=== PATIENT | male | born 1935 | race Caucasian/White ===

== ENCOUNTER 2021-12-23 07:00 | Inpatient (IN) ==
[2021-12-23] MEDS ORDERED: GLUCAGON 1 MG VIAL IM PRN (09:39)
[2021-12-23] MEDS ORDERED: SODIUM CHLORIDE 0.9% 1,000 ML IV SCH (10:00)
[2021-12-23] MEDS ORDERED: NITROGLYCERIN SL 0.4 MG TABLET SL PRN (11:17)
[2021-12-23] MEDS ORDERED: MORPHINE 2 MG/1 ML SYRINGE IV PRN (11:18)
[2021-12-23 13:12] LABS: Arterial Base Excess iSTAT -3 MMOL/L (-2.5-2.5); Arterial Bicarbonate iSTAT 22.4 MMOL/L (20-26); Arterial O2 Saturation iSTAT 92 % (95-100); Arterial PCO2 iSTAT 41 MM HG (35-48); Arterial PO2 iSTAT 67 MM HG (80-95); Arterial Total CO2 iSTAT 24 MMO/L (23-27); Arterial pH iSTAT 7.346 (7.35-7.45)
[2021-12-23 13:28] LABS: Basophils # 0.1 10*3/uL (0.0-0.2); Basophils % 1.2 % (0.0-0.8); Eosinophils % 11.4 % (0.00-10.9); Hematocrit 40.3 VOL% (42.0-52.0); Hemoglobin 13.1 GM/DL (14.0-18.0); Immature Granulocytes % 0.5 %; Immature Granulocytes Absolute 0.05 #; Lymphocytes # 1.8 10*3/uL (1.4-4.0); Lymphocytes % 19.8 % (21.2-54.2); Mean Corpuscular HGB Conc 32.5 GM/DL (32-36); Mean Corpuscular Volume 92.9 FL (87-102); Mean Platelet Volume 10.1 FL (9.6-12.0); Monocytes # 1.1 10*3/uL (0.11-0.8); Monocytes % 11.9 % (1.7-12.7); Neutrophils % 55.2 % (38.7-73.9); Platelet Count 225 T/CUMM (130-400); Red Blood Count 4.34 MC/CUMM (3.8-5.5); Red Cell Distribution Width 15.8 % (9.3-17.3); White Blood Count 9.1 T/CUMM (4-12)
[2021-12-23 13:45] LABS: Albumin 3.5 G/DL (3.4-5.0); Bilirubin,Total 0.4 MG/DL (0.20-1.00); Osmolality,Calculated 285.1 MOS/KG (273-304); Potassium 4.5 MMOL/L (3.5-5.1); Total Protein 7.7 G/DL (6.4-8.2)
[2021-12-23] MEDS ORDERED: DEXTROSE 10% 250 ML BAG IV PRN (13:54)
[2021-12-23 14:02] LABS: Eosinophils 13 % (0-10); Lymphocytes 23 % (20-55); Total Cells Counted 100
[2021-12-23 14:04] LABS: Platelet Estimate Adequate
[2021-12-23] MEDS ORDERED: ALPRAZolam 0.5 MG TABLET PO PRN (14:43)
[2021-12-23] MEDS ORDERED: ZALEPLON 5 MG CAPSULE PO PRN (14:44)
[2021-12-23] MEDS: INSULIN REGULAR 100 UNIT/ML SUBCUT SCH ×3 (15:17→21:17)
[2021-12-23] MEDS: CHLORHEXIDINE 4% SOLN 118 ML BOTTLE TOP SCH ×2 (15:57→21:16)
[2021-12-23] MEDS ORDERED: PANTOPRAZOLE 40 MG TABLET PO ONE (16:00)
[2021-12-23] MEDS ORDERED: DIAZEPAM 5 MG TABLET PO ONE (16:00)
[2021-12-23] MEDS: ISOSORBIDE MONONITRATE 30 MG TABLET PO SCH (21:16)
[2021-12-23] MEDS: CHLORHEXIDINE 0.12% ORAL RINSE 60 ML BOTTLE SWISH/SPIT SCH (21:16)
[2021-12-24] MEDS ORDERED: PAPAVERINE 60 MG/2 ML VIAL ONE (04:17)
[2021-12-24] MEDS ORDERED: VANCOMYCIN 500 MG VIAL ONE (04:17)
[2021-12-24] MEDS ORDERED: VANCOMYCIN 1,000 MG VIAL ONE (04:17)
[2021-12-24] MEDS: CHLORHEXIDINE 4% SOLN 118 ML BOTTLE TOP SCH (04:25)
[2021-12-24] MEDS ORDERED: DIAZEPAM 5 MG TABLET PO ONE (05:00)
[2021-12-24] MEDS ORDERED: SODIUM CHLORIDE 0.9% 1,000 ML IV SCH (05:00)
[2021-12-24] MEDS ORDERED: VANCOMYCIN INJ 1,000 MG in SODIUM CHLORIDE 0.9% 250 ML IV ONE (05:00)
[2021-12-24] MEDS ORDERED: PANTOPRAZOLE 40 MG TABLET PO ONE (05:00)
[2021-12-24] MEDS ORDERED: MIDAZOLAM 10 MG/2 ML VIAL ONE ×4 (06:07→07:58)
[2021-12-24] MEDS ORDERED: CALCIUM CHLORIDE 1,000 MG/10 ML VIAL IV ONE ×2 (06:07→10:30)
[2021-12-24] MEDS ORDERED: AMINOCAPROIC ACID 5,000 MG/20 ML VIAL ONE (06:07)
[2021-12-24] MEDS ORDERED: LIDOCAINE 2% 5 ML VIAL ONE ×2 (06:07→10:27)
[2021-12-24] MEDS ORDERED: VECURONIUM 10 MG VIAL IV ONE ×3 (06:07→07:58)
[2021-12-24] MEDS ORDERED: SUFentanil 250 MCG/5 ML AMP ONE ×2 (06:08→08:08)
[2021-12-24] MEDS ORDERED: ePHEDrine 50 MG/ML VIAL ONE (06:08)
[2021-12-24] MEDS ORDERED: MINERAL OIL/PETROLATUM OPH OINT 3.5 GM TUBE ONE (06:34)
[2021-12-24] MEDS ORDERED: POTASSIUM CHLORIDE RIDER 20 MEQ/100 ML PREMIX IV ONE (07:00)
[2021-12-24] MEDS ORDERED: NITROPRUSSIDE 50 MG/2 ML VIAL ONE (07:00)
[2021-12-24] MEDS ORDERED: SODIUM BICARBONATE 50 MEQ/50 ML VIAL IV ONE ×2 (07:00→10:28)
[2021-12-24] MEDS ORDERED: ALBUMIN 5% 12.5 GM/250 ML VIAL IV ONE (07:01)
[2021-12-24] MEDS ORDERED: CALCIUM CHLORIDE 1,000 MG/10 ML SYRINGE IV ONE (07:01)
[2021-12-24] MEDS ORDERED: PHENYLEPHRINE DRIP 40 MG/250 ML PREMIX IV ONE (07:01)
[2021-12-24 07:45] LABS: ABG Base Excess 0.9 MMOL/L (-2.5-2.5); ABG HCO3 25.3 MMOL/L (20-26); ABG PCO2 30.8 MM HG (35-48); ABG TCO2 20.5 MMOL/L (23-27); Glucose Heart Surgery 132 MG/DL (74-106); Hematocrit Heart Surgery 38.4 PERCENT (42-52); Hemoglobin Heart Surgery 12.5 G/DL (14.0-18.0); Ionized Calcium Arterial 1.15 MMOL/L (1.21-1.46); PCO2 Patient Temp Arterial 30.8 MMHG; Patient Temperature 37 CELCIUS; Sodium Heart/CVR 141 MMOL/L (135-145)
[2021-12-24 08:22] LABS: Bilirubin,Urine Negative (Negative); Blood, Urine Moderate mg/dL (Negative); Glucose,Urine (UA) 100 mg/dL (Negative); Ketones,Urine Negative (Negative); Nitrite,Urine Negative (Negative); Protein,Urine 30 mg/dL (Negative); RBC,Urine 45 /HPF (0-4); Urine Appearance Clear (Clear); Urine Color Straw (Yellow); Urine Specific Gravity 1.015 (1.001-1.035); Urine Urobilinogen 0.2 eU/dL (<2.0); Urine pH 5.5 (4.5-8.0)
[2021-12-24] MEDS ORDERED: FAMOTIDINE 20 MG/2 ML VIAL IV ONE (08:46)
[2021-12-24 09:28] LABS: Hematocrit Heart Surgery 26.2 PERCENT (42-52); Hemoglobin Heart Surgery 8.4 G/DL (14.0-18.0); PCO2 Patient Temp Venous 36.5 MM HG; PH Patient Temp Venous 7.438; PO2 Patient Temp Venous 43.4 MM HG; Potassium Heart/CVR 4.8 MMOL/L (3.5-5.1); VBG Base Excess 0.8 MEQ/L (0-4); VBG Oxygen Saturation 87.8 %; VBG PCO2 42.2 MMHG (41-51); VBG PH 7.394; VBG PO2 53.2 MMHG (17-40)
[2021-12-24 09:55] LABS: Hematocrit Heart Surgery 28.4 PERCENT (42-52); Hemoglobin Heart Surgery 9.2 G/DL (14.0-18.0); PCO2 Patient Temp Venous 34.1 MM HG; PH Patient Temp Venous 7.461; PO2 Patient Temp Venous 38.8 MM HG; Potassium Heart/CVR 4.9 MMOL/L (3.5-5.1); VBG Base Excess 0.9 MEQ/L (0-4); VBG HCO3 24.9 MEQ/L (24-28); VBG Oxygen Saturation 79.2 %; VBG PCO2 35.8 MMHG (41-51); VBG PH 7.446; VBG PO2 41.6 MMHG (17-40); VBG Total CO2 22.7 MMOL/L
[2021-12-24] MEDS ORDERED: diphenhydrAMINE 50 MG/1 ML VIAL ONE ×2 (09:57→09:58)
[2021-12-24] MEDS: INSULIN REGULAR 100 UNIT/ML SUBCUT SCH ×2 (10:16→19:37)
[2021-12-24] MEDS: CHLORHEXIDINE 0.12% ORAL RINSE 60 ML BOTTLE SWISH/SPIT SCH (10:16)
[2021-12-24] MEDS: ISOSORBIDE MONONITRATE 30 MG TABLET PO SCH (10:16)
[2021-12-24 10:24] LABS: ABG Base Excess -0.6 MMOL/L (-2.5-2.5); ABG HCO3 23.9 MMOL/L (20-26); ABG PCO2 32.7 MM HG (35-48); ABG PH 7.451 (7.35-7.45); ABG TCO2 20.7 MMOL/L (23-27); Glucose Heart Surgery 200 MG/DL (74-106); Hematocrit Heart Surgery 30.6 PERCENT (42-52); Hemoglobin Heart Surgery 9.9 G/DL (14.0-18.0); Ionized Calcium Arterial 1.27 MMOL/L (1.21-1.46); PCO2 Patient Temp Arterial 32.7 MMHG; PH Patient Temp Arterial 7.451; Patient Temperature 37 CELCIUS; Potassium Heart/CVR 4.3 MMOL/L (3.5-5.1); Sodium Heart/CVR 136 MMOL/L (135-145)
[2021-12-24] MEDS ORDERED: ALBUMIN 25% 25 GM/100 ML VIAL IV ONE (10:27)
[2021-12-24] MEDS ORDERED: DEXTROSE 5% KCL 20 MEQ 20 MEQ/1,000 ML BAG IV ONE (10:27)
[2021-12-24] MEDS ORDERED: methylPREDNISolone SOD SUC 1,000 MG/8 ML VIAL ONE (10:27)
[2021-12-24] MEDS ORDERED: MAGNESIUM SULFATE 5 GM/10 ML VIAL IV ONE (10:27)
[2021-12-24] MEDS ORDERED: PROTAMINE SULFATE 250 MG/25 ML VIAL IV ONE (10:28)
[2021-12-24] MEDS ORDERED: MANNITOL 12.5 GM/50 ML VIAL IV ONE (10:28)
[2021-12-24] MEDS ORDERED: HEPARIN 10,000 UNIT/10 ML VIAL ONE (10:28)
[2021-12-24] MEDS ORDERED: PROTAMINE SULFATE 50 MG/5 ML VIAL IV ONE ×2 (10:28→11:23)
[2021-12-24] MEDS ORDERED: FUROSEMIDE 20 MG/2 ML VIAL ONE (10:28)
[2021-12-24] MEDS ORDERED: SODIUM CHLORIDE 0.9% 250 ML IV ONE ×2 (10:45)
[2021-12-24] MEDS ORDERED: LACTATED RINGERS 1,000 ML IV ONE (10:45)
[2021-12-24] MEDS ORDERED: SEVOFLURANE 1 UNIT/15 MINUTE INH ONE ×10 (10:45→10:46)
[2021-12-24] MEDS ORDERED: SODIUM CHLORIDE 0.9% 1,000 ML IV ONE (10:45)
[2021-12-24] MEDS ORDERED: HEPARIN/NACL 0.9% 2 UNITS/ML 1,000 UNIT/500 ML BAG IV ONE (10:45)
[2021-12-24] MEDS ORDERED: MAGNESIUM SULF RIDER 4 GM/100 ML PREMIX IV PRN (10:52)
[2021-12-24] MEDS ORDERED: DEXTROSE 10% 250 ML BAG IV PRN ×2 (10:52)
[2021-12-24] MEDS ORDERED: POTASSIUM CHLORIDE RIDER 10 MEQ/100 ML PREMIX IV PRN (10:52)
[2021-12-24] MEDS ORDERED: VECURONIUM 10 MG VIAL IV PRN ×2 (10:52)
[2021-12-24] MEDS ORDERED: INSULIN REGULAR 100 UNIT/ML IV ONE (10:52)
[2021-12-24] MEDS ORDERED: CHLORHEXIDINE 4% SOLN 118 ML BOTTLE TOP PRN (10:52)
[2021-12-24] MEDS ORDERED: MORPHINE 10 MG/1 ML VIAL IV PRN (10:52)
[2021-12-24] MEDS ORDERED: NITROPRUSSIDE 100 MG in DEXTROSE 5% 250 ML IV PRN (10:52)
[2021-12-24] MEDS ORDERED: ONDANSETRON 4 MG/2 ML VIAL IV PRN (10:52)
[2021-12-24] MEDS ORDERED: MAGNESIUM SULF RIDER 2 GM/50 ML PREMIX IV PRN (10:52)
[2021-12-24] MEDS ORDERED: POTASSIUM CHLORIDE RIDER 20 MEQ/100 ML PREMIX IV PRN (10:52)
[2021-12-24] MEDS ORDERED: INSULIN REGULAR 100 UNIT/ML IV PRN (10:52)
[2021-12-24] MEDS ORDERED: CALCIUM CHLORIDE 1,000 MG/10 ML SYRINGE IV PRN (10:52)
[2021-12-24] MEDS ORDERED: PHENYLEPHRINE DRIP 40 MG/250 ML PREMIX IV PRN (10:52)
[2021-12-24] MEDS ORDERED: ACETAMINOPHEN 650 MG SUPP RECTAL PRN (10:52)
[2021-12-24] MEDS: ALBUMIN 5% 12.5 GM/250 ML VIAL IV PRN ×4 (11:00→16:01)
[2021-12-24] MEDS ORDERED: SODIUM CHLORIDE 0.45% 1,000 ML IV SCH ×2 (11:00)
[2021-12-24] MEDS ORDERED: INSULIN REGULAR DRIP 100 ML IV SCH (11:00)
[2021-12-24] MEDS: LACTATED RINGERS 250 ML IV PRN ×4 (11:05→12:52)
[2021-12-24 11:38] LABS: ABG Base Excess -1.6 MMOL/L (-2.5-2.5); ABG HCO3 23.1 MMOL/L (20-26); ABG Oxygen Saturation 98.8 % (95-100); ABG TCO2 20.6 MMOL/L (23-27); Glucose Heart Surgery 169 MG/DL (74-106); Hematocrit Heart Surgery 34.6 PERCENT (42-52); Hemoglobin Heart Surgery 11.2 G/DL (14.0-18.0); Potassium Heart/CVR 4.1 MMOL/L (3.5-5.1)
[2021-12-24 11:42] LABS: Basophils # 0.1 10*3/uL (0.0-0.2); Basophils % 0.7 % (0.0-0.8); Eosinophils # 0.6 10*3/uL (0.0-0.87); Eosinophils % 5.9 % (0.00-10.9); Hematocrit 33.4 VOL% (42.0-52.0); Hemoglobin 11.1 GM/DL (14.0-18.0); Immature Granulocytes % 1.1 %; Immature Granulocytes Absolute 0.12 #; Lymphocytes # 1.1 10*3/uL (1.4-4.0); Lymphocytes % 9.8 % (21.2-54.2); Mean Corpuscular HGB Conc 33.2 GM/DL (32-36); Mean Corpuscular Volume 91.5 FL (87-102); Mean Platelet Volume 10.1 FL (9.6-12.0); Monocytes # 0.8 10*3/uL (0.11-0.8); Monocytes % 7.1 % (1.7-12.7); Neutrophils % 75.4 % (38.7-73.9); Platelet Count 176 T/CUMM (130-400); Red Blood Count 3.65 MC/CUMM (3.8-5.5); Red Cell Distribution Width 15.7 % (9.3-17.3); White Blood Count 10.7 T/CUMM (4-12)
[2021-12-24 11:52] LABS: INR 1.1; PT Patient Result 12.1 SECS (10.5-12.0); Partial Thromboplastin Time 29.6 SECS (23.8-32.1)
[2021-12-24 11:59] LABS: CKMB % 9.64 %
[2021-12-24 12:03] LABS: Albumin 2.9 G/DL (3.4-5.0); Bilirubin,Total 0.8 MG/DL (0.20-1.00); Calcium 9.2 MG/DL (8.5-10.1); High Sensitive Troponin I* 4986.4 ng/L (0-78); Osmolality,Calculated 286.5 MOS/KG (273-304); Potassium 4.1 MMOL/L (3.5-5.1); Total Protein 5.8 G/DL (6.4-8.2)
[2021-12-24] MEDS: LACTATED RINGERS 1,000 ML IV PRN ×2 (12:28→14:45)
[2021-12-24 12:42] LABS: ABG HCO3 22.7 MMOL/L (20-26); ABG Oxygen Saturation 99.3 % (95-100); ABG PCO2 37.1 MM HG (35-48); ABG PH 7.391 (7.35-7.45); ABG TCO2 20.4 MMOL/L (23-27); Glucose Heart Surgery 154 MG/DL (74-106); Hematocrit Heart Surgery 32.6 PERCENT (42-52); Hemoglobin Heart Surgery 10.6 G/DL (14.0-18.0); Potassium Heart/CVR 3.9 MMOL/L (3.5-5.1)
[2021-12-24 13:56] LABS: ABG Base Excess -1.6 MMOL/L (-2.5-2.5); ABG HCO3 23.1 MMOL/L (20-26); ABG Oxygen Saturation 99.1 % (95-100); ABG PCO2 35.9 MM HG (35-48); ABG PH 7.407 (7.35-7.45); ABG TCO2 20.4 MMOL/L (23-27); Glucose Heart Surgery 150 MG/DL (74-106); Hematocrit Heart Surgery 32.5 PERCENT (42-52); Hemoglobin Heart Surgery 10.5 G/DL (14.0-18.0); Potassium Heart/CVR 4.5 MMOL/L (3.5-5.1)
[2021-12-24] MEDS ORDERED: FUROSEMIDE 40 MG/4 ML VIAL ONE (18:08)
[2021-12-24 18:26] LABS: ABG Base Excess -1.5 MMOL/L (-2.5-2.5); ABG HCO3 23.2 MMOL/L (20-26); ABG Oxygen Saturation 98.9 % (95-100); ABG PCO2 42.4 MM HG (35-48); ABG PH 7.359 (7.35-7.45); ABG TCO2 21.8 MMOL/L (23-27); Glucose Heart Surgery 177 MG/DL (74-106); Hematocrit Heart Surgery 30.6 PERCENT (42-52); Hemoglobin Heart Surgery 9.9 G/DL (14.0-18.0); Potassium Heart/CVR 4.6 MMOL/L (3.5-5.1)
[2021-12-24] MEDS ORDERED: FUROSEMIDE 40 MG/4 ML VIAL IV ONE (18:30)
[2021-12-24 18:49] LABS: CKMB % 7.62 %
[2021-12-24 18:51] LABS: High Sensitive Troponin I* 7380.1 ng/L (0-78)
[2021-12-24 19:21] LABS: ABG Base Excess -1.5 MMOL/L (-2.5-2.5); ABG HCO3 23.2 MMOL/L (20-26); ABG Oxygen Saturation 98.9 % (95-100); ABG PCO2 41.6 MM HG (35-48); ABG PH 7.365 (7.35-7.45); ABG TCO2 21.6 MMOL/L (23-27); Glucose Heart Surgery 186 MG/DL (74-106); Hematocrit Heart Surgery 31.5 PERCENT (42-52); Hemoglobin Heart Surgery 10.2 G/DL (14.0-18.0); Potassium Heart/CVR 4.5 MMOL/L (3.5-5.1)
[2021-12-24] MEDS ORDERED: CHLORHEXIDINE 0.12% ORAL RINSE 60 ML BOTTLE SWISH/SPIT SCH (21:00)
[2021-12-24 22:49] LABS: ABG Base Excess -1.6 MMOL/L (-2.5-2.5); ABG HCO3 23.1 MMOL/L (20-26); ABG Oxygen Saturation 98.9 % (95-100); ABG PH 7.382 (7.35-7.45); ABG TCO2 21.1 MMOL/L (23-27); Glucose Heart Surgery 210 MG/DL (74-106); Hematocrit Heart Surgery 31.4 PERCENT (42-52); Hemoglobin Heart Surgery 10.2 G/DL (14.0-18.0); Potassium Heart/CVR 4.4 MMOL/L (3.5-5.1)
[2021-12-24] MEDS: VANCOMYCIN INJ 1,000 MG in SODIUM CHLORIDE 0.9% 250 ML IV SCH (23:01)
[2021-12-25 00:03] LABS: ABG HCO3 22.7 MMOL/L (20-26); ABG Oxygen Saturation 99.1 % (95-100); ABG PCO2 36.6 MM HG (35-48); ABG PH 7.396 (7.35-7.45); ABG TCO2 20.4 MMOL/L (23-27); Glucose Heart Surgery 212 MG/DL (74-106); Potassium Heart/CVR 4.4 MMOL/L (3.5-5.1)
[2021-12-25] MEDS: INSULIN REGULAR 100 UNIT/ML SUBCUT SCH ×7 (00:10→23:41)
[2021-12-25 01:56] LABS: ABG Base Excess -2.8 MMOL/L (-2.5-2.5); ABG Oxygen Saturation 99.3 % (95-100); ABG PCO2 37.1 MM HG (35-48); ABG PH 7.378 (7.35-7.45); ABG TCO2 19.8 MMOL/L (23-27); Glucose Heart Surgery 246 MG/DL (74-106); Hematocrit Heart Surgery 31.8 PERCENT (42-52); Hemoglobin Heart Surgery 10.3 G/DL (14.0-18.0); Potassium Heart/CVR 4.3 MMOL/L (3.5-5.1)
[2021-12-25 02:54] LABS: ABG HCO3 21.9 MMOL/L (20-26); ABG Oxygen Saturation 97.1 % (95-100); ABG PCO2 40.7 MM HG (35-48); ABG PH 7.348 (7.35-7.45); ABG PO2 91.1 MM HG (80-95); ABG TCO2 20.4 MMOL/L (23-27); Glucose Heart Surgery 237 MG/DL (74-106); Hematocrit Heart Surgery 31.7 PERCENT (42-52); Hemoglobin Heart Surgery 10.3 G/DL (14.0-18.0); Potassium Heart/CVR 4.2 MMOL/L (3.5-5.1)
[2021-12-25 04:00] LABS: ABG Base Excess -2.8 MMOL/L (-2.5-2.5); ABG HCO3 22.1 MMOL/L (20-26); ABG Oxygen Saturation 97.8 % (95-100); ABG PCO2 41.2 MM HG (35-48); ABG PH 7.348 (7.35-7.45); ABG TCO2 20.7 MMOL/L (23-27); Glucose Heart Surgery 247 MG/DL (74-106); Potassium Heart/CVR 4.2 MMOL/L (3.5-5.1)
[2021-12-25 04:09] LABS: Basophils % 0.2 % (0.0-0.8); Hematocrit 30.7 VOL% (42.0-52.0); Hemoglobin 10.3 GM/DL (14.0-18.0); Immature Granulocytes % 0.5 %; Immature Granulocytes Absolute 0.09 #; Lymphocytes # 0.6 10*3/uL (1.4-4.0); Lymphocytes % 3.8 % (21.2-54.2); Mean Corpuscular HGB Conc 33.6 GM/DL (32-36); Mean Corpuscular Volume 92.5 FL (87-102); Mean Platelet Volume 10.2 FL (9.6-12.0); Monocytes # 1.3 10*3/uL (0.11-0.8); Monocytes % 7.8 % (1.7-12.7); Neutrophils % 87.7 % (38.7-73.9); Platelet Count 165 T/CUMM (130-400); Red Blood Count 3.32 MC/CUMM (3.8-5.5); White Blood Count 16.9 T/CUMM (4-12)
[2021-12-25 04:26] LABS: Albumin 3.5 G/DL (3.4-5.0); Bilirubin,Direct 0.23 MG/DL (0.0-0.20); Bilirubin,Total 0.7 MG/DL (0.20-1.00); Calcium 8.7 MG/DL (8.5-10.1); Osmolality,Calculated 292.4 MOS/KG (273-304); Potassium 4.2 MMOL/L (3.5-5.1); Total Protein 5.9 G/DL (6.4-8.2)
[2021-12-25 04:28] LABS: CKMB % 6.51 %
[2021-12-25 04:29] LABS: Band Neutrophils 4 % (0-10); High Sensitive Troponin I* 6093.3 ng/L (0-78); Lymphocytes 1 % (20-55); Total Cells Counted 100
[2021-12-25 04:30] LABS: Microcytosis 1+
[2021-12-25] MEDS ORDERED: ALPRAZolam 0.5 MG TABLET PO PRN (07:01)
[2021-12-25] MEDS ORDERED: MAGNESIUM SULF RIDER 4 GM/100 ML PREMIX IV PRN (08:14)
[2021-12-25] MEDS ORDERED: ALUMINUM/MAGNES/SIMETH MAX STR 30 ML UDCUP PO PRN (08:14)
[2021-12-25] MEDS ORDERED: ACETAMINOPHEN 325 MG TABLET PO PRN (08:14)
[2021-12-25] MEDS ORDERED: POTASSIUM CHLORIDE 20 MEQ TABLET PO PRN (08:14)
[2021-12-25] MEDS ORDERED: oxyCODONE/ACETAMINOPHEN 5-325 MG TABLET PO PRN (08:14)
[2021-12-25] MEDS ORDERED: DEXTROSE 10% 250 ML BAG IV PRN ×2 (08:14)
[2021-12-25] MEDS ORDERED: GLUCAGON 1 MG VIAL IM PRN ×2 (08:14)
[2021-12-25] MEDS ORDERED: MAGNESIUM HYDROXIDE SUSP 30 ML UDCUP PO PRN (08:14)
[2021-12-25] MEDS ORDERED: ONDANSETRON 4 MG/2 ML VIAL IV PRN (08:14)
[2021-12-25] MEDS ORDERED: MAGNESIUM SULF RIDER 2 GM/50 ML PREMIX IV PRN (08:14)
[2021-12-25] MEDS: ASPIRIN EC 81 MG TABLET PO SCH (08:21)
[2021-12-25] MEDS: PANTOPRAZOLE 40 MG TABLET PO SCH (08:21)
[2021-12-25] MEDS: COLCHICINE 0.6 MG CAPSULE PO SCH (08:21)
[2021-12-25] MEDS: DOCUSATE SODIUM 100 MG CAPSULE PO SCH (08:22)
[2021-12-25] MEDS: FERROUS SULFATE 325 MG TABLET PO SCH (08:22)
[2021-12-25] MEDS: ISOSORBIDE MONONITRATE 30 MG TABLET PO SCH (08:22)
[2021-12-25] MEDS: METOPROLOL SUCCINATE XL 50 MG TABLET PO SCH (08:22)
[2021-12-25] MEDS: CHLORHEXIDINE 0.12% ORAL RINSE 60 ML BOTTLE SWISH/SPIT SCH ×2 (08:23→20:34)
[2021-12-25] MEDS: SODIUM CHLOR 0.45% KCL 20 MEQ 20 MEQ/1,000 ML BAG IV SCH (08:25)
[2021-12-25] MEDS ORDERED: TIOTROPIUM 18 MCG INHALATION CAP 5/BOX INH SCH (09:00)
[2021-12-25] MEDS ORDERED: PIOGLITAZONE 15 MG TABLET PO SCH (09:00)
[2021-12-25] MEDS: VANCOMYCIN INJ 1,000 MG in SODIUM CHLORIDE 0.9% 250 ML IV SCH ×2 (10:02→23:41)
[2021-12-25] MEDS: INSULIN GLARGINE 100 UNIT/ML SUBCUT SCH (11:30)
[2021-12-25 11:48] LABS: CKMB % 6.01 %
[2021-12-25 11:52] LABS: High Sensitive Troponin I* 4627.9 ng/L (0-78)
[2021-12-25] MEDS: IPRATROPIUM 500 MCG/2.5 ML NEB RESP TX SCH ×3 (15:08→18:47)
[2021-12-25] MEDS ORDERED: INSULIN GLARGINE 100 UNIT/ML SUBCUT ONE ×2 (17:56)
[2021-12-25] MEDS: ZALEPLON 5 MG CAPSULE PO PRN (20:34)
[2021-12-26] MEDS: INSULIN REGULAR 100 UNIT/ML SUBCUT SCH ×5 (03:08→21:10)
[2021-12-26 04:44] LABS: Basophils % 0.2 % (0.0-0.8); Hematocrit 27.6 VOL% (42.0-52.0); Hemoglobin 8.9 GM/DL (14.0-18.0); Immature Granulocytes Absolute 0.19 #; Lymphocytes # 0.9 10*3/uL (1.4-4.0); Mean Corpuscular HGB Conc 32.2 GM/DL (32-36); Mean Corpuscular Volume 94.8 FL (87-102); Mean Platelet Volume 10.8 FL (9.6-12.0); Monocytes # 2.3 10*3/uL (0.11-0.8); Monocytes % 12.1 % (1.7-12.7); Neutrophils % 81.7 % (38.7-73.9); Platelet Count 177 T/CUMM (130-400); Red Blood Count 2.91 MC/CUMM (3.8-5.5); Red Cell Distribution Width 16.2 % (9.3-17.3); White Blood Count 18.5 T/CUMM (4-12)
[2021-12-26] MEDS ORDERED: SODIUM CHLORIDE 0.9% 1,000 ML IV PRN (05:08)
[2021-12-26 05:22] LABS: Albumin 2.9 G/DL (3.4-5.0); Bilirubin,Direct 0.12 MG/DL (0.0-0.20); Bilirubin,Total 0.4 MG/DL (0.20-1.00); Calcium 8.5 MG/DL (8.5-10.1); Osmolality,Calculated 284.1 MOS/KG (273-304); Potassium 4.1 MMOL/L (3.5-5.1)
[2021-12-26 05:24] LABS: Bilirubin,Direct 0.14 MG/DL (0.0-0.20); Bilirubin,Indirect 0.3 MG/DL (0.0-1.0); Bilirubin,Total 0.4 MG/DL (0.20-1.00); CKMB % 3.07 %; High Sensitive Troponin I* 2982.6 ng/L (0-78); Total Protein 5.6 G/DL (6.4-8.2)
[2021-12-26] MEDS ORDERED: FUROSEMIDE 40 MG/4 ML VIAL IV ONE (06:00)
[2021-12-26] MEDS: IPRATROPIUM 500 MCG/2.5 ML NEB RESP TX SCH ×4 (07:53→18:55)
[2021-12-26] MEDS: CHLORHEXIDINE 0.12% ORAL RINSE 60 ML BOTTLE SWISH/SPIT SCH ×2 (09:00→21:11)
[2021-12-26] MEDS: ASPIRIN EC 81 MG TABLET PO SCH (09:00)
[2021-12-26] MEDS: INSULIN GLARGINE 100 UNIT/ML SUBCUT SCH ×2 (09:00→09:28)
[2021-12-26] MEDS: FERROUS SULFATE 325 MG TABLET PO SCH (09:28)
[2021-12-26] MEDS: ISOSORBIDE MONONITRATE 30 MG TABLET PO SCH (09:29)
[2021-12-26] MEDS: COLCHICINE 0.6 MG CAPSULE PO SCH (09:29)
[2021-12-26] MEDS: PANTOPRAZOLE 40 MG TABLET PO SCH (09:29)
[2021-12-26] MEDS: DOCUSATE SODIUM 100 MG CAPSULE PO SCH (09:29)
[2021-12-26] MEDS: METOPROLOL SUCCINATE XL 50 MG TABLET PO SCH (09:29)
[2021-12-26] MEDS: SODIUM CHLOR 0.45% KCL 20 MEQ 20 MEQ/1,000 ML BAG IV SCH (10:35)
[2021-12-26] MEDS: VANCOMYCIN INJ 1,000 MG in SODIUM CHLORIDE 0.9% 250 ML IV SCH (11:00)
[2021-12-26 13:21] LABS: Hematocrit 33.7 VOL% (42.0-52.0)
[2021-12-26 13:28] LABS: Hemoglobin 11.1 GM/DL (14.0-18.0)
[2021-12-26] MEDS: ZALEPLON 5 MG CAPSULE PO PRN (21:10)
[2021-12-27] MEDS: INSULIN REGULAR 100 UNIT/ML SUBCUT SCH ×7 (00:37→23:51)
[2021-12-27 04:03] LABS: Basophils % 0.2 % (0.0-0.8); Eosinophils # 0.1 10*3/uL (0.0-0.87); Eosinophils % 0.5 % (0.00-10.9); Hematocrit 29.8 VOL% (42.0-52.0); Hemoglobin 9.5 GM/DL (14.0-18.0); Immature Granulocytes Absolute 0.18 #; Lymphocytes # 1.8 10*3/uL (1.4-4.0); Mean Corpuscular HGB Conc 31.9 GM/DL (32-36); Mean Corpuscular Volume 93.4 FL (87-102); Mean Platelet Volume 10.8 FL (9.6-12.0); Monocytes # 2.5 10*3/uL (0.11-0.8); Monocytes % 14.5 % (1.7-12.7); Neutrophils % 73.8 % (38.7-73.9); Platelet Count 172 T/CUMM (130-400); Red Blood Count 3.19 MC/CUMM (3.8-5.5); White Blood Count 17.5 T/CUMM (4-12)
[2021-12-27 04:30] LABS: Alanine Aminotransferase 27 U/L (16-61); Albumin 2.5 G/DL (3.4-5.0); Alkaline Phosphatase 51 U/L (45-117); Aspartate Amino Transferase 26 U/L (0-37); Bilirubin,Indirect 0.4 MG/DL (0.0-1.0); Total Protein 5.9 G/DL (6.4-8.2)
[2021-12-27 04:35] LABS: Albumin 2.6 G/DL (3.4-5.0); Bilirubin,Direct 0.18 MG/DL (0.0-0.20); Bilirubin,Total 0.6 MG/DL (0.20-1.00); Calcium 8.3 MG/DL (8.5-10.1); Total Protein 5.9 G/DL (6.4-8.2)
[2021-12-27] MEDS: IPRATROPIUM 500 MCG/2.5 ML NEB RESP TX SCH ×4 (06:47→22:07)
[2021-12-27] MEDS: DOCUSATE SODIUM 100 MG CAPSULE PO SCH (09:17)
[2021-12-27] MEDS: ASPIRIN EC 81 MG TABLET PO SCH (09:17)
[2021-12-27] MEDS: COLCHICINE 0.6 MG CAPSULE PO SCH (09:17)
[2021-12-27] MEDS: ISOSORBIDE MONONITRATE 30 MG TABLET PO SCH (09:18)
[2021-12-27] MEDS: FERROUS SULFATE 325 MG TABLET PO SCH (09:18)
[2021-12-27] MEDS: INSULIN GLARGINE 100 UNIT/ML SUBCUT SCH ×2 (09:18)
[2021-12-27] MEDS: PANTOPRAZOLE 40 MG TABLET PO SCH (09:18)
[2021-12-27] MEDS: CHLORHEXIDINE 0.12% ORAL RINSE 60 ML BOTTLE SWISH/SPIT SCH ×2 (09:19→20:30)
[2021-12-27] MEDS: METOPROLOL SUCCINATE XL 50 MG TABLET PO SCH (09:19)
[2021-12-27] MEDS: POLYETHYLENE GLYCOL POWDER 17 GM PACK PO SCH (11:15)
[2021-12-27] MEDS: DUTASTERIDE 0.5 MG CAPSULE PO SCH (16:13)
[2021-12-27] MEDS: AMIODARONE 200 MG TABLET PO SCH ×2 (17:22→20:25)
[2021-12-27] MEDS: ROSUVASTATIN 20 MG TABLET PO SCH (20:25)
[2021-12-27] MEDS: ZALEPLON 5 MG CAPSULE PO PRN (20:28)
[2021-12-28] MEDS: INSULIN REGULAR 100 UNIT/ML SUBCUT SCH ×5 (03:45→21:52)
[2021-12-28 03:56] LABS: Basophils % 0.3 % (0.0-0.8); Eosinophils # 0.6 10*3/uL (0.0-0.87); Eosinophils % 4.2 % (0.00-10.9); Hematocrit 28.3 VOL% (42.0-52.0); Hemoglobin 9.3 GM/DL (14.0-18.0); Immature Granulocytes % 1.8 %; Immature Granulocytes Absolute 0.25 #; Lymphocytes # 1.5 10*3/uL (1.4-4.0); Mean Corpuscular HGB Conc 32.9 GM/DL (32-36); Mean Corpuscular Volume 91.9 FL (87-102); Mean Platelet Volume 10.4 FL (9.6-12.0); Monocytes # 1.9 10*3/uL (0.11-0.8); Monocytes % 13.3 % (1.7-12.7); Neutrophils % 69.4 % (38.7-73.9); Platelet Count 190 T/CUMM (130-400); Red Blood Count 3.08 MC/CUMM (3.8-5.5); Red Cell Distribution Width 16.3 % (9.3-17.3); White Blood Count 13.9 T/CUMM (4-12)
[2021-12-28 04:14] LABS: Albumin 2.4 G/DL (3.4-5.0); Bilirubin,Total 0.6 MG/DL (0.20-1.00); Calcium 8.1 MG/DL (8.5-10.1); Osmolality,Calculated 291.8 MOS/KG (273-304); Potassium 3.8 MMOL/L (3.5-5.1)
[2021-12-28] MEDS: IPRATROPIUM 500 MCG/2.5 ML NEB RESP TX SCH ×4 (07:25→19:21)
[2021-12-28] MEDS: AMIODARONE 200 MG TABLET PO SCH ×2 (08:23→21:52)
[2021-12-28] MEDS: DOCUSATE SODIUM 100 MG CAPSULE PO SCH (08:24)
[2021-12-28] MEDS: PANTOPRAZOLE 40 MG TABLET PO SCH (08:24)
[2021-12-28] MEDS: FERROUS SULFATE 325 MG TABLET PO SCH (08:24)
[2021-12-28] MEDS: ASPIRIN EC 81 MG TABLET PO SCH (08:24)
[2021-12-28] MEDS: COLCHICINE 0.6 MG CAPSULE PO SCH (08:25)
[2021-12-28] MEDS: METOPROLOL SUCCINATE XL 50 MG TABLET PO SCH (08:25)
[2021-12-28] MEDS: DUTASTERIDE 0.5 MG CAPSULE PO SCH (08:25)
[2021-12-28] MEDS: POLYETHYLENE GLYCOL POWDER 17 GM PACK PO SCH (08:26)
[2021-12-28] MEDS: INSULIN GLARGINE 100 UNIT/ML SUBCUT SCH (08:27)
[2021-12-28] MEDS: CHLORHEXIDINE 0.12% ORAL RINSE 60 ML BOTTLE SWISH/SPIT SCH ×2 (08:30→21:52)
[2021-12-28] MEDS: ISOSORBIDE MONONITRATE 30 MG TABLET PO SCH (08:30)
[2021-12-28] MEDS ORDERED: POLYETHYLENE GLYCOL POWDER 17 GM PACK PO SCH (09:00)
[2021-12-28] MEDS ORDERED: LACTULOSE 20 GM/30 ML UDCUP PO PRN (10:05)
[2021-12-28] MEDS: ROSUVASTATIN 20 MG TABLET PO SCH (21:52)
[2021-12-28] MEDS: ZALEPLON 5 MG CAPSULE PO PRN (21:52)
[2021-12-29] MEDS: INSULIN REGULAR 100 UNIT/ML SUBCUT SCH ×5 (01:30→21:05)
[2021-12-29 06:10] LABS: Basophils # 0.1 10*3/uL (0.0-0.2); Basophils % 0.4 % (0.0-0.8); Eosinophils # 0.8 10*3/uL (0.0-0.87); Eosinophils % 7.2 % (0.00-10.9); Hematocrit 28.2 VOL% (42.0-52.0); Hemoglobin 9.2 GM/DL (14.0-18.0); Immature Granulocytes Absolute 0.46 #; Lymphocytes # 1.6 10*3/uL (1.4-4.0); Lymphocytes % 13.5 % (21.2-54.2); Mean Corpuscular HGB Conc 32.6 GM/DL (32-36); Mean Corpuscular Volume 92.2 FL (87-102); Mean Platelet Volume 10.4 FL (9.6-12.0); Monocytes # 1.6 10*3/uL (0.11-0.8); Monocytes % 13.8 % (1.7-12.7); NRBC # 0.02 10*3/uL; Neutrophils % 61.1 % (38.7-73.9); Platelet Count 233 T/CUMM (130-400); Red Blood Count 3.06 MC/CUMM (3.8-5.5); Red Cell Distribution Width 16.4 % (9.3-17.3); White Blood Count 11.6 T/CUMM (4-12)
[2021-12-29 06:24] LABS: Alanine Aminotransferase 33 U/L (16-61); Albumin 2.3 G/DL (3.4-5.0); Alkaline Phosphatase 71 U/L (45-117); Aspartate Amino Transferase 25 U/L (0-37); Bilirubin,Indirect 0.4 MG/DL (0.0-1.0); Blood Urea Nitrogen 51 MG/DL (7-18); Calcium 7.8 MG/DL (8.5-10.1); Carbon Dioxide 27 MMOL/L (21-32); Chloride 107 MMOL/L (98-107); Glucose 118 MG/DL (74-106); Osmolality,Calculated 291.5 MOS/KG (273-304); Potassium 3.9 MMOL/L (3.5-5.1); Sodium 139 MMOL/L (136-145); Total Protein 5.9 G/DL (6.4-8.2)
[2021-12-29] MEDS: IPRATROPIUM 500 MCG/2.5 ML NEB RESP TX SCH ×4 (06:56→19:18)
[2021-12-29] MEDS: AMIODARONE 200 MG TABLET PO SCH ×2 (09:25→21:05)
[2021-12-29] MEDS: ISOSORBIDE MONONITRATE 30 MG TABLET PO SCH (09:25)
[2021-12-29] MEDS: METOPROLOL SUCCINATE XL 50 MG TABLET PO SCH (09:25)
[2021-12-29] MEDS: DUTASTERIDE 0.5 MG CAPSULE PO SCH (09:25)
[2021-12-29] MEDS: ASPIRIN EC 81 MG TABLET PO SCH (09:25)
[2021-12-29] MEDS: PANTOPRAZOLE 40 MG TABLET PO SCH (09:25)
[2021-12-29] MEDS: COLCHICINE 0.6 MG CAPSULE PO SCH (09:25)
[2021-12-29] MEDS: DOCUSATE SODIUM 100 MG CAPSULE PO SCH (09:25)
[2021-12-29] MEDS: INSULIN GLARGINE 100 UNIT/ML SUBCUT SCH (09:26)
[2021-12-29] MEDS: FERROUS SULFATE 325 MG TABLET PO SCH (09:26)
[2021-12-29] MEDS: CHLORHEXIDINE 0.12% ORAL RINSE 60 ML BOTTLE SWISH/SPIT SCH ×2 (09:26→21:05)
[2021-12-29] MEDS: POLYETHYLENE GLYCOL POWDER 17 GM PACK PO SCH (09:26)
[2021-12-29] MEDS: ZALEPLON 5 MG CAPSULE PO PRN (21:04)
[2021-12-29] MEDS: ROSUVASTATIN 20 MG TABLET PO SCH (21:05)
[2021-12-30 05:28] LABS: Basophils # 0.1 10*3/uL (0.0-0.2); Basophils % 0.6 % (0.0-0.8); Eosinophils # 0.6 10*3/uL (0.0-0.87); Eosinophils % 4.7 % (0.00-10.9); Hemoglobin 9.3 GM/DL (14.0-18.0); Immature Granulocytes % 5.6 %; Immature Granulocytes Absolute 0.71 #; Lymphocytes # 1.8 10*3/uL (1.4-4.0); Lymphocytes % 14.5 % (21.2-54.2); Mean Corpuscular HGB Conc 32.1 GM/DL (32-36); Mean Corpuscular Volume 93.2 FL (87-102); Mean Platelet Volume 10.1 FL (9.6-12.0); Monocytes # 1.7 10*3/uL (0.11-0.8); Monocytes % 13.3 % (1.7-12.7); Neutrophils % 61.3 % (38.7-73.9); Platelet Count 257 T/CUMM (130-400); Red Blood Count 3.11 MC/CUMM (3.8-5.5); Red Cell Distribution Width 16.3 % (9.3-17.3); White Blood Count 12.6 T/CUMM (4-12)
[2021-12-30 05:45] LABS: Alanine Aminotransferase 32 U/L (16-61); Albumin 2.3 G/DL (3.4-5.0); Alkaline Phosphatase 71 U/L (45-117); Aspartate Amino Transferase 22 U/L (0-37); Bilirubin,Indirect 0.3 MG/DL (0.0-1.0); Blood Urea Nitrogen 51 MG/DL (7-18); Calcium 8.5 MG/DL (8.5-10.1); Carbon Dioxide 26 MMOL/L (21-32); Chloride 104 MMOL/L (98-107); Glucose 110 MG/DL (74-106); Osmolality,Calculated 289.7 MOS/KG (273-304); Potassium 4.1 MMOL/L (3.5-5.1); Sodium 138 MMOL/L (136-145); Total Protein 6.1 G/DL (6.4-8.2)
[2021-12-30 05:51] LABS: Atypical Lymphocytes Few; Eosinophils 6 % (0-10); Hypochromia Slight; Lymphocytes 20 % (20-55); Myelocytes 2 %; Total Cells Counted 100
[2021-12-30 05:52] LABS: Anisocytosis 1+; Microcytosis 1+; Platelet Estimate Normal; Polychromasia Slight
[2021-12-30] MEDS: IPRATROPIUM 500 MCG/2.5 ML NEB RESP TX SCH ×2 (07:56→14:08)
[2021-12-30] MEDS: COLCHICINE 0.6 MG CAPSULE PO SCH (08:55)
[2021-12-30] MEDS: ASPIRIN EC 81 MG TABLET PO SCH (08:55)
[2021-12-30] MEDS: INSULIN GLARGINE 100 UNIT/ML SUBCUT SCH (08:55)
[2021-12-30] MEDS: FERROUS SULFATE 325 MG TABLET PO SCH (08:55)
[2021-12-30] MEDS: DOCUSATE SODIUM 100 MG CAPSULE PO SCH (08:55)
[2021-12-30] MEDS: PANTOPRAZOLE 40 MG TABLET PO SCH (08:55)
[2021-12-30] MEDS: INSULIN REGULAR 100 UNIT/ML SUBCUT SCH ×2 (08:55→11:50)
[2021-12-30] MEDS: DUTASTERIDE 0.5 MG CAPSULE PO SCH (08:55)
[2021-12-30] MEDS: AMIODARONE 200 MG TABLET PO SCH (08:56)
[2021-12-30] MEDS: METOPROLOL SUCCINATE XL 50 MG TABLET PO SCH (08:56)
[2021-12-30] MEDS: ISOSORBIDE MONONITRATE 30 MG TABLET PO SCH (08:56)
[2021-12-30] MEDS: CHLORHEXIDINE 0.12% ORAL RINSE 60 ML BOTTLE SWISH/SPIT SCH (08:58)
[2021-12-30] MEDS: POLYETHYLENE GLYCOL POWDER 17 GM PACK PO SCH (08:59)
[2021-12-30 12:02] VITALS: BP 170/70
== END 2021-12-30 15:05 | disposition home health service (06) | DRG 236 ==
LOC: N.TELEN 12:09 → N.CVR 12-24 10:46 → N.ICU 12-25 11:22 → N.TELES 12-28 17:41

== ENCOUNTER 2022-01-14 15:15 | Inpatient (IN) ==
[2022-01-14 17:18] LABS: Basophils # 0.1 10*3/uL (0.0-0.2); Basophils % 0.6 % (0.0-0.8); Eosinophils # 0.2 10*3/uL (0.0-0.87); Hematocrit 32.8 VOL% (42.0-52.0); Hemoglobin 10.1 GM/DL (14.0-18.0); Immature Granulocytes % 0.8 %; Immature Granulocytes Absolute 0.08 #; Lymphocytes % 10.3 % (21.2-54.2); Mean Corpuscular HGB Conc 30.8 GM/DL (32-36); Mean Corpuscular Volume 92.9 FL (87-102); Mean Platelet Volume 9.1 FL (9.6-12.0); Monocytes # 1.3 10*3/uL (0.11-0.8); Monocytes % 12.9 % (1.7-12.7); Neutrophils % 73.4 % (38.7-73.9); Platelet Count 490 T/CUMM (130-400); Red Blood Count 3.53 MC/CUMM (3.8-5.5); Red Cell Distribution Width 16.5 % (9.3-17.3); White Blood Count 9.7 T/CUMM (4-12)
[2022-01-14 17:23] LABS: Albumin 2.9 G/DL (3.4-5.0); Bilirubin,Total 0.5 MG/DL (0.20-1.00); Calcium 9.4 MG/DL (8.5-10.1); Osmolality,Calculated 275.4 MOS/KG (273-304); Potassium 4.4 MMOL/L (3.5-5.1); Total Protein 7.8 G/DL (6.4-8.2)
[2022-01-14] MEDS ORDERED: VANCOMYCIN INJ 1,250 MG in SODIUM CHLORIDE 0.9% 250 ML IV STA (20:22)
[2022-01-14] MEDS ORDERED: MEROPENEM 500 MG in SODIUM CHLORIDE 0.9% 100 ML IV ONE (20:48)
[2022-01-14] MEDS ORDERED: ONDANSETRON 4 MG/2 ML VIAL IV PRN (21:36)
[2022-01-14] MEDS ORDERED: ACETAMINOPHEN 325 MG TABLET PO PRN (21:36)
[2022-01-14] MEDS ORDERED: VANCOMYCIN INJ 1,500 MG in SODIUM CHLORIDE 0.9% 500 ML IV SCH (22:00)
[2022-01-14] MEDS: ZOLPIDEM 5 MG TABLET PO PRN (23:59)
[2022-01-15] MEDS: LACTATED RINGERS 1,000 ML IV SCH ×4 (02:19→21:00)
[2022-01-15 04:48] LABS: Basophils # 0.1 10*3/uL (0.0-0.2); Basophils % 0.6 % (0.0-0.8); Eosinophils # 0.4 10*3/uL (0.0-0.87); Eosinophils % 5.4 % (0.00-10.9); Hematocrit 26.7 VOL% (42.0-52.0); Hemoglobin 8.6 GM/DL (14.0-18.0); Immature Granulocytes % 0.5 %; Immature Granulocytes Absolute 0.04 #; Lymphocytes # 1.2 10*3/uL (1.4-4.0); Lymphocytes % 14.7 % (21.2-54.2); Mean Corpuscular HGB Conc 32.2 GM/DL (32-36); Mean Corpuscular Volume 90.8 FL (87-102); Mean Platelet Volume 8.8 FL (9.6-12.0); Monocytes # 1.2 10*3/uL (0.11-0.8); Monocytes % 15.2 % (1.7-12.7); Neutrophils % 63.6 % (38.7-73.9); Platelet Count 360 T/CUMM (130-400); Red Blood Count 2.94 MC/CUMM (3.8-5.5); Red Cell Distribution Width 16.1 % (9.3-17.3); White Blood Count 7.8 T/CUMM (4-12)
[2022-01-15 05:05] LABS: Calcium 8.6 MG/DL (8.5-10.1); Potassium 3.9 MMOL/L (3.5-5.1)
[2022-01-15] MEDS: MEROPENEM 500 MG in SODIUM CHLORIDE 0.9% 100 ML IV SCH ×3 (06:01→22:22)
[2022-01-15] MEDS: PANTOPRAZOLE 40 MG TABLET PO SCH (10:02)
[2022-01-15] MEDS: VANCOMYCIN INJ 1,500 MG in SODIUM CHLORIDE 0.9% 500 ML IV SCH (15:24)
[2022-01-15] MEDS: ZOLPIDEM 5 MG TABLET PO PRN (22:23)
[2022-01-16] MEDS: MEROPENEM 500 MG in SODIUM CHLORIDE 0.9% 100 ML IV SCH ×3 (05:04→20:40)
[2022-01-16] MEDS: PANTOPRAZOLE 40 MG TABLET PO SCH (10:03)
[2022-01-16] MEDS: VANCOMYCIN INJ 1,500 MG in SODIUM CHLORIDE 0.9% 500 ML IV SCH (10:03)
[2022-01-16] MEDS: LACTATED RINGERS 1,000 ML IV SCH ×3 (10:03→22:30)
[2022-01-16] MEDS: ZOLPIDEM 5 MG TABLET PO PRN (22:38)
[2022-01-17] MEDS: VANCOMYCIN INJ 1,500 MG in SODIUM CHLORIDE 0.9% 500 ML IV SCH (03:17)
[2022-01-17] MEDS: MEROPENEM 500 MG in SODIUM CHLORIDE 0.9% 100 ML IV SCH ×3 (05:30→23:05)
[2022-01-17] MEDS: LACTATED RINGERS 1,000 ML IV SCH ×2 (09:13→16:29)
[2022-01-17] MEDS: PANTOPRAZOLE 40 MG TABLET PO SCH (10:35)
[2022-01-17] MEDS ORDERED: FUROSEMIDE 40 MG/4 ML VIAL IV ONE (20:17)
[2022-01-17] MEDS ORDERED: LEVALBUTEROL 1.25 MG/3 ML NEB RESP TX ONE (20:22)
[2022-01-17] MEDS ORDERED: GLUCAGON 1 MG VIAL IM PRN (20:53)
[2022-01-17] MEDS ORDERED: LEVALBUTEROL 1.25 MG/3 ML NEB RESP TX PRN (20:57)
[2022-01-17 21:28] LABS: Calcium 8.9 MG/DL (8.5-10.1); Osmolality,Calculated 280.8 MOS/KG (273-304); Potassium 4.3 MMOL/L (3.5-5.1)
[2022-01-17] MEDS ORDERED: SODIUM CHLORIDE 0.9% 100 ML IV ONE (22:47)
[2022-01-17] MEDS: ISOSORBIDE MONONITRATE 30 MG TABLET PO SCH (23:03)
[2022-01-17] MEDS: ZOLPIDEM 5 MG TABLET PO PRN (23:04)
[2022-01-17] MEDS: ROSUVASTATIN 20 MG TABLET PO SCH (23:04)
[2022-01-17] MEDS: AMIODARONE 200 MG TABLET PO SCH (23:05)
[2022-01-17] MEDS: INSULIN REGULAR 100 UNIT/ML SUBCUT SCH (23:10)
[2022-01-18] MEDS: VANCOMYCIN INJ 1,500 MG in SODIUM CHLORIDE 0.9% 500 ML IV SCH (04:16)
[2022-01-18] MEDS: MEROPENEM 500 MG in SODIUM CHLORIDE 0.9% 100 ML IV SCH ×3 (05:00→21:09)
[2022-01-18] MEDS: IPRATROPIUM 500 MCG/2.5 ML NEB RESP TX SCH ×4 (07:38→19:35)
[2022-01-18] MEDS ORDERED: INSULIN GLARGINE 100 UNIT/ML SUBCUT ONE (07:51)
[2022-01-18] MEDS ORDERED: MAGNESIUM SULF RIDER 2 GM/50 ML PREMIX IV ONE (09:00)
[2022-01-18] MEDS ORDERED: PIOGLITAZONE 15 MG TABLET PO SCH (09:00)
[2022-01-18] MEDS: INSULIN REGULAR 100 UNIT/ML SUBCUT SCH ×4 (09:14→21:12)
[2022-01-18] MEDS: INSULIN GLARGINE 100 UNIT/ML SUBCUT SCH (09:21)
[2022-01-18] MEDS: FUROSEMIDE 40 MG/4 ML VIAL IV SCH ×2 (09:22→15:49)
[2022-01-18] MEDS: PANTOPRAZOLE 40 MG TABLET PO SCH (09:22)
[2022-01-18] MEDS: METOPROLOL SUCCINATE XL 50 MG TABLET PO SCH (09:23)
[2022-01-18] MEDS: COLCHICINE 0.6 MG CAPSULE PO SCH (09:23)
[2022-01-18] MEDS: DUTASTERIDE 0.5 MG CAPSULE PO SCH (09:23)
[2022-01-18] MEDS: ASPIRIN EC 81 MG TABLET PO SCH (09:23)
[2022-01-18] MEDS: ISOSORBIDE MONONITRATE 30 MG TABLET PO SCH ×2 (09:23→21:08)
[2022-01-18] MEDS: AMIODARONE 200 MG TABLET PO SCH ×2 (09:24→21:08)
[2022-01-18] MEDS ORDERED: SODIUM CHLORIDE 0.9% 1,000 ML IV SCH (12:00)
[2022-01-18 12:38] LABS: Basophils # 0.1 10*3/uL (0.0-0.2); Basophils % 0.7 % (0.0-0.8); Eosinophils # 0.4 10*3/uL (0.0-0.87); Eosinophils % 3.6 % (0.00-10.9); Hematocrit 28.6 VOL% (42.0-52.0); Immature Granulocytes % 0.8 %; Immature Granulocytes Absolute 0.09 #; Lymphocytes # 1.3 10*3/uL (1.4-4.0); Lymphocytes % 11.8 % (21.2-54.2); Mean Corpuscular HGB Conc 31.5 GM/DL (32-36); Mean Corpuscular Volume 90.8 FL (87-102); Mean Platelet Volume 9.2 FL (9.6-12.0); Monocytes # 1.5 10*3/uL (0.11-0.8); Monocytes % 12.8 % (1.7-12.7); Neutrophils % 70.3 % (38.7-73.9); Platelet Count 444 T/CUMM (130-400); Red Blood Count 3.15 MC/CUMM (3.8-5.5); Red Cell Distribution Width 16.5 % (9.3-17.3); White Blood Count 11.3 T/CUMM (4-12)
[2022-01-18 12:59] LABS: % Iron Saturation 13.1 % (18-50); Ferritin 428.3 ng/mL (26-388)
[2022-01-18 13:08] LABS: Folate 14.56 NG/ML (5.38-24.0)
[2022-01-18] MEDS ORDERED: FERRIC GLUCONATE COMPLEX 125 MG in SODIUM CHLORIDE 0.9% 100 ML IV ONE (15:00)
[2022-01-18] MEDS: ZALEPLON 5 MG CAPSULE PO PRN (21:08)
[2022-01-18] MEDS: ROSUVASTATIN 20 MG TABLET PO SCH (21:08)
[2022-01-18] MEDS: CYANOCOBALAMIN 500 MCG TABLET PO SCH (21:08)
[2022-01-19] MEDS: VANCOMYCIN INJ 1,500 MG in SODIUM CHLORIDE 0.9% 500 ML IV SCH (03:44)
[2022-01-19 05:36] LABS: Basophils # 0.1 10*3/uL (0.0-0.2); Basophils % 0.8 % (0.0-0.8); Eosinophils # 0.7 10*3/uL (0.0-0.87); Eosinophils % 6.7 % (0.00-10.9); Hematocrit 25.5 VOL% (42.0-52.0); Immature Granulocytes % 0.8 %; Immature Granulocytes Absolute 0.08 #; Lymphocytes # 1.5 10*3/uL (1.4-4.0); Lymphocytes % 14.9 % (21.2-54.2); Mean Corpuscular HGB Conc 31.4 GM/DL (32-36); Mean Corpuscular Volume 91.1 FL (87-102); Mean Platelet Volume 9.4 FL (9.6-12.0); Monocytes # 1.5 10*3/uL (0.11-0.8); Monocytes % 15.1 % (1.7-12.7); Neutrophils % 61.7 % (38.7-73.9); Platelet Count 404 T/CUMM (130-400); Red Cell Distribution Width 16.6 % (9.3-17.3); White Blood Count 9.9 T/CUMM (4-12)
[2022-01-19] MEDS: MEROPENEM 500 MG in SODIUM CHLORIDE 0.9% 100 ML IV SCH ×3 (06:00→20:45)
[2022-01-19] MEDS: DEXTROSE 10% 250 ML BAG IV PRN (06:03)
[2022-01-19 06:37] LABS: Potassium 3.8 MMOL/L (3.5-5.1)
[2022-01-19 06:39] LABS: Calcium 8.5 MG/DL (8.5-10.1)
[2022-01-19 06:41] LABS: Osmolality,Calculated 277.7 MOS/KG (273-304)
[2022-01-19] MEDS: IPRATROPIUM 500 MCG/2.5 ML NEB RESP TX SCH ×4 (07:15→19:56)
[2022-01-19] MEDS: INSULIN REGULAR 100 UNIT/ML SUBCUT SCH ×4 (07:22→23:41)
[2022-01-19] MEDS ORDERED: BENZONATATE 100 MG CAPSULE PO PRN (09:36)
[2022-01-19] MEDS: FUROSEMIDE 40 MG/4 ML VIAL IV SCH ×2 (10:19→17:02)
[2022-01-19] MEDS: INSULIN GLARGINE 100 UNIT/ML SUBCUT SCH (10:20)
[2022-01-19] MEDS ORDERED: ETOMIDATE 40 MG/20 ML VIAL IV ONE (12:08)
[2022-01-19] MEDS ORDERED: propofoL 200 MG/20 ML VIAL IV ONE (12:08)
[2022-01-19] MEDS: ISOSORBIDE MONONITRATE 30 MG TABLET PO SCH ×2 (13:54→20:43)
[2022-01-19] MEDS: METOPROLOL SUCCINATE XL 50 MG TABLET PO SCH (13:54)
[2022-01-19] MEDS: PANTOPRAZOLE 40 MG TABLET PO SCH (14:00)
[2022-01-19] MEDS: AMIODARONE 200 MG TABLET PO SCH ×2 (14:00→20:43)
[2022-01-19] MEDS: ASPIRIN EC 81 MG TABLET PO SCH (14:00)
[2022-01-19] MEDS: COLCHICINE 0.6 MG CAPSULE PO SCH (14:00)
[2022-01-19] MEDS: CYANOCOBALAMIN 500 MCG TABLET PO SCH ×2 (14:00→20:43)
[2022-01-19] MEDS: DUTASTERIDE 0.5 MG CAPSULE PO SCH (14:03)
[2022-01-19] MEDS: ZALEPLON 5 MG CAPSULE PO PRN (20:43)
[2022-01-19] MEDS: ROSUVASTATIN 20 MG TABLET PO SCH (20:44)
[2022-01-20] MEDS: ALPRAZolam 0.5 MG TABLET PO PRN ×2 (02:33→21:46)
[2022-01-20 04:42] LABS: Basophils # 0.1 10*3/uL (0.0-0.2); Basophils % 0.8 % (0.0-0.8); Eosinophils # 0.9 10*3/uL (0.0-0.87); Eosinophils % 9.8 % (0.00-10.9); Hematocrit 25.4 VOL% (42.0-52.0); Hemoglobin 7.9 GM/DL (14.0-18.0); Immature Granulocytes Absolute 0.09 #; Lymphocytes # 1.5 10*3/uL (1.4-4.0); Lymphocytes % 16.1 % (21.2-54.2); Mean Corpuscular HGB Conc 31.1 GM/DL (32-36); Mean Corpuscular Volume 91.4 FL (87-102); Mean Platelet Volume 9.3 FL (9.6-12.0); Monocytes # 1.4 10*3/uL (0.11-0.8); Monocytes % 15.4 % (1.7-12.7); Neutrophils % 56.9 % (38.7-73.9); Platelet Count 392 T/CUMM (130-400); Red Blood Count 2.78 MC/CUMM (3.8-5.5); Red Cell Distribution Width 16.5 % (9.3-17.3)
[2022-01-20 05:02] LABS: Calcium 8.6 MG/DL (8.5-10.1); Potassium 3.3 MMOL/L (3.5-5.1)
[2022-01-20 05:03] LABS: Osmolality,Calculated 281.3 MOS/KG (273-304)
[2022-01-20] MEDS: MEROPENEM 500 MG in SODIUM CHLORIDE 0.9% 100 ML IV SCH ×3 (05:05→21:29)
[2022-01-20] MEDS: VANCOMYCIN INJ 1,500 MG in SODIUM CHLORIDE 0.9% 500 ML IV SCH (05:06)
[2022-01-20] MEDS: IPRATROPIUM 500 MCG/2.5 ML NEB RESP TX SCH ×4 (07:05→19:26)
[2022-01-20] MEDS ORDERED: POTASSIUM CHLORIDE 20 MEQ TABLET PO ONE ×2 (07:10→09:00)
[2022-01-20] MEDS: INSULIN REGULAR 100 UNIT/ML SUBCUT SCH ×4 (08:18→22:43)
[2022-01-20] MEDS: ASPIRIN EC 81 MG TABLET PO SCH (08:52)
[2022-01-20] MEDS: CYANOCOBALAMIN 500 MCG TABLET PO SCH ×2 (08:52→21:29)
[2022-01-20] MEDS: DUTASTERIDE 0.5 MG CAPSULE PO SCH (08:52)
[2022-01-20] MEDS: PANTOPRAZOLE 40 MG TABLET PO SCH (08:52)
[2022-01-20] MEDS: SPIRONOLACTONE 25 MG TABLET PO SCH (08:52)
[2022-01-20] MEDS: AMIODARONE 200 MG TABLET PO SCH ×2 (08:53→21:29)
[2022-01-20] MEDS: COLCHICINE 0.6 MG CAPSULE PO SCH (08:53)
[2022-01-20] MEDS: FERRIC GLUCONATE COMPLEX 125 MG in SODIUM CHLORIDE 0.9% 100 ML IV SCH (08:53)
[2022-01-20] MEDS: METOPROLOL SUCCINATE XL 50 MG TABLET PO SCH (08:53)
[2022-01-20] MEDS: ISOSORBIDE MONONITRATE 30 MG TABLET PO SCH ×2 (08:53→21:29)
[2022-01-20] MEDS ORDERED: INSULIN GLARGINE 100 UNIT/ML SUBCUT SCH (09:00)
[2022-01-20] MEDS ORDERED: POTASSIUM CHLORIDE RIDER 10 MEQ/100 ML PREMIX IV PRN (11:27)
[2022-01-20] MEDS ORDERED: MAGNESIUM SULF RIDER 2 GM/50 ML PREMIX IV PRN (11:27)
[2022-01-20 14:21] LABS: Hematocrit 27.5 VOL% (42.0-52.0); Hemoglobin 8.5 GM/DL (14.0-18.0)
[2022-01-20] MEDS: ZALEPLON 5 MG CAPSULE PO PRN (21:46)
[2022-01-20] MEDS: ROSUVASTATIN 20 MG TABLET PO SCH (22:47)
[2022-01-21] MEDS: MEROPENEM 500 MG in SODIUM CHLORIDE 0.9% 100 ML IV SCH ×3 (04:21→20:59)
[2022-01-21 04:44] LABS: Basophils # 0.1 10*3/uL (0.0-0.2); Eosinophils # 0.9 10*3/uL (0.0-0.87); Eosinophils % 8.9 % (0.00-10.9); Hematocrit 25.7 VOL% (42.0-52.0); Immature Granulocytes % 1.7 %; Immature Granulocytes Absolute 0.16 #; Lymphocytes # 1.5 10*3/uL (1.4-4.0); Lymphocytes % 15.7 % (21.2-54.2); Mean Corpuscular HGB Conc 31.1 GM/DL (32-36); Mean Corpuscular Volume 91.5 FL (87-102); Mean Platelet Volume 9.4 FL (9.6-12.0); Monocytes # 1.5 10*3/uL (0.11-0.8); Monocytes % 15.2 % (1.7-12.7); Neutrophils % 57.5 % (38.7-73.9); Platelet Count 439 T/CUMM (130-400); Red Blood Count 2.81 MC/CUMM (3.8-5.5); Red Cell Distribution Width 16.7 % (9.3-17.3); White Blood Count 9.6 T/CUMM (4-12)
[2022-01-21] MEDS: VANCOMYCIN INJ 1,500 MG in SODIUM CHLORIDE 0.9% 500 ML IV SCH (04:52)
[2022-01-21 05:05] LABS: Calcium 8.9 MG/DL (8.5-10.1); Osmolality,Calculated 280.4 MOS/KG (273-304); Potassium 4.3 MMOL/L (3.5-5.1)
[2022-01-21] MEDS: IPRATROPIUM 500 MCG/2.5 ML NEB RESP TX SCH ×4 (07:05→19:00)
[2022-01-21] MEDS: DEXTROSE 10% 250 ML BAG IV PRN ×2 (07:15→14:39)
[2022-01-21] MEDS ORDERED: SODIUM CHLORIDE 0.9% 1,000 ML IV PRN (07:16)
[2022-01-21] MEDS ORDERED: INSULIN GLARGINE 100 UNIT/ML SUBCUT SCH (09:00)
[2022-01-21 12:54] LABS: Hemoglobin 9.2 GM/DL (14.0-18.0)
[2022-01-21] MEDS: INSULIN REGULAR 100 UNIT/ML SUBCUT SCH ×3 (13:12→20:59)
[2022-01-21] MEDS: AMIODARONE 200 MG TABLET PO SCH ×2 (13:13→20:57)
[2022-01-21] MEDS: FERRIC GLUCONATE COMPLEX 125 MG in SODIUM CHLORIDE 0.9% 100 ML IV SCH (13:13)
[2022-01-21] MEDS: ISOSORBIDE MONONITRATE 30 MG TABLET PO SCH ×2 (13:14→20:57)
[2022-01-21] MEDS: CYANOCOBALAMIN 500 MCG TABLET PO SCH ×2 (13:14→20:58)
[2022-01-21] MEDS: SPIRONOLACTONE 25 MG TABLET PO SCH (14:45)
[2022-01-21] MEDS: DUTASTERIDE 0.5 MG CAPSULE PO SCH (14:45)
[2022-01-21] MEDS: ASPIRIN EC 81 MG TABLET PO SCH (14:45)
[2022-01-21] MEDS: METOPROLOL SUCCINATE XL 50 MG TABLET PO SCH (14:46)
[2022-01-21] MEDS: COLCHICINE 0.6 MG CAPSULE PO SCH (14:46)
[2022-01-21] MEDS: PANTOPRAZOLE 40 MG TABLET PO SCH (14:46)
[2022-01-21] MEDS ORDERED: HEPARIN/NACL 0.9% 2 UNITS/ML 3,000 UNIT/1,500 ML BAG IV ONE (16:28)
[2022-01-21] MEDS ORDERED: MIDAZOLAM 2 MG/2 ML VIAL ONE (16:37)
[2022-01-21] MEDS ORDERED: fentaNYL 100 MCG/2 ML VIAL ONE (16:38)
[2022-01-21] MEDS ORDERED: HEPARIN/NACL 0.9% 2 UNITS/ML 1,000 UNIT/500 ML BAG IV ONE (16:48)
[2022-01-21] MEDS ORDERED: HEPARIN 5,000 UNIT/1 ML VIAL ONE (16:54)
[2022-01-21] MEDS ORDERED: NITROGLYCERIN DRIP 50 MG/250 ML BOTTLE IV ONE (16:56)
[2022-01-21] MEDS: ALPRAZolam 0.5 MG TABLET PO PRN (20:57)
[2022-01-21] MEDS: ZALEPLON 5 MG CAPSULE PO PRN (20:57)
[2022-01-21] MEDS: ROSUVASTATIN 20 MG TABLET PO SCH (20:58)
[2022-01-22] MEDS: MEROPENEM 500 MG in SODIUM CHLORIDE 0.9% 100 ML IV SCH ×2 (04:09→19:02)
[2022-01-22] MEDS: VANCOMYCIN INJ 1,500 MG in SODIUM CHLORIDE 0.9% 500 ML IV SCH (04:10)
[2022-01-22 04:55] LABS: Basophils # 0.1 10*3/uL (0.0-0.2); Basophils % 0.6 % (0.0-0.8); Eosinophils # 0.5 10*3/uL (0.0-0.87); Eosinophils % 5.1 % (0.00-10.9); Hematocrit 31.1 VOL% (42.0-52.0); Hemoglobin 9.6 GM/DL (14.0-18.0); Immature Granulocytes % 1.5 %; Immature Granulocytes Absolute 0.15 #; Lymphocytes # 0.8 10*3/uL (1.4-4.0); Lymphocytes % 7.7 % (21.2-54.2); Mean Corpuscular HGB Conc 30.9 GM/DL (32-36); Mean Corpuscular Volume 92.6 FL (87-102); Mean Platelet Volume 11.1 FL (9.6-12.0); Monocytes # 0.8 10*3/uL (0.11-0.8); Monocytes % 8.1 % (1.7-12.7); Platelet Count 375 T/CUMM (130-400); Red Blood Count 3.36 MC/CUMM (3.8-5.5); Red Cell Distribution Width 16.4 % (9.3-17.3); White Blood Count 10.2 T/CUMM (4-12)
[2022-01-22 05:05] LABS: Calcium 8.9 MG/DL (8.5-10.1); Osmolality,Calculated 282.4 MOS/KG (273-304); Potassium 4.6 MMOL/L (3.5-5.1)
[2022-01-22] MEDS: IPRATROPIUM 500 MCG/2.5 ML NEB RESP TX SCH ×4 (07:15→20:26)
[2022-01-22] MEDS: INSULIN REGULAR 100 UNIT/ML SUBCUT SCH ×4 (08:18→23:38)
[2022-01-22] MEDS: FERRIC GLUCONATE COMPLEX 125 MG in SODIUM CHLORIDE 0.9% 100 ML IV SCH (08:50)
[2022-01-22] MEDS: INSULIN GLARGINE 100 UNIT/ML SUBCUT SCH (08:55)
[2022-01-22] MEDS: DEXTROSE 10% 250 ML BAG IV PRN (11:30)
[2022-01-22] MEDS ORDERED: DEXTROSE 50% 25 GM/50 ML SYRINGE IV ONE (17:47)
[2022-01-22] MEDS ORDERED: DEXTROSE 50% 25 GM/50 ML VIAL IV ONE ×3 (18:00→19:30)
[2022-01-22] MEDS ORDERED: MIDAZOLAM 2 MG/2 ML VIAL ONE (18:54)
[2022-01-22] MEDS: AMIODARONE 200 MG TABLET PO SCH ×2 (18:58→21:13)
[2022-01-22] MEDS: DUTASTERIDE 0.5 MG CAPSULE PO SCH (19:07)
[2022-01-22] MEDS: SPIRONOLACTONE 25 MG TABLET PO SCH (19:07)
[2022-01-22] MEDS: ASPIRIN EC 81 MG TABLET PO SCH (19:07)
[2022-01-22] MEDS: ISOSORBIDE MONONITRATE 30 MG TABLET PO SCH ×2 (19:08→21:13)
[2022-01-22] MEDS: METOPROLOL SUCCINATE XL 50 MG TABLET PO SCH (19:08)
[2022-01-22] MEDS: CYANOCOBALAMIN 500 MCG TABLET PO SCH ×2 (19:08→21:13)
[2022-01-22] MEDS: PANTOPRAZOLE 40 MG TABLET PO SCH (19:08)
[2022-01-22] MEDS: COLCHICINE 0.6 MG CAPSULE PO SCH (19:08)
[2022-01-22] MEDS: ROSUVASTATIN 20 MG TABLET PO SCH (21:12)
[2022-01-22] MEDS: ZALEPLON 5 MG CAPSULE PO PRN (21:13)
[2022-01-22] MEDS: ALPRAZolam 0.5 MG TABLET PO PRN (21:13)
[2022-01-23] MEDS: VANCOMYCIN INJ 1,500 MG in SODIUM CHLORIDE 0.9% 500 ML IV SCH (03:42)
[2022-01-23 04:52] LABS: Basophils # 0.1 10*3/uL (0.0-0.2); Basophils % 0.5 % (0.0-0.8); Eosinophils # 0.8 10*3/uL (0.0-0.87); Eosinophils % 7.6 % (0.00-10.9); Hematocrit 32.2 VOL% (42.0-52.0); Immature Granulocytes % 1.4 %; Immature Granulocytes Absolute 0.14 #; Lymphocytes # 0.8 10*3/uL (1.4-4.0); Lymphocytes % 7.8 % (21.2-54.2); Mean Corpuscular HGB Conc 31.1 GM/DL (32-36); Mean Corpuscular Volume 92.3 FL (87-102); Mean Platelet Volume 9.6 FL (9.6-12.0); Monocytes # 1.2 10*3/uL (0.11-0.8); Monocytes % 12.3 % (1.7-12.7); Neutrophils % 70.4 % (38.7-73.9); Platelet Count 485 T/CUMM (130-400); Red Blood Count 3.49 MC/CUMM (3.8-5.5); Red Cell Distribution Width 16.6 % (9.3-17.3); White Blood Count 9.9 T/CUMM (4-12)
[2022-01-23 05:14] LABS: Calcium 8.6 MG/DL (8.5-10.1); Potassium 4.2 MMOL/L (3.5-5.1)
[2022-01-23] MEDS: IPRATROPIUM 500 MCG/2.5 ML NEB RESP TX SCH ×4 (07:02→19:01)
[2022-01-23] MEDS: INSULIN REGULAR 100 UNIT/ML SUBCUT SCH ×4 (08:48→21:10)
[2022-01-23] MEDS: FERRIC GLUCONATE COMPLEX 125 MG in SODIUM CHLORIDE 0.9% 100 ML IV SCH (09:25)
[2022-01-23] MEDS: INSULIN GLARGINE 100 UNIT/ML SUBCUT SCH (09:27)
[2022-01-23] MEDS: ASPIRIN EC 81 MG TABLET PO SCH (09:29)
[2022-01-23] MEDS: SPIRONOLACTONE 25 MG TABLET PO SCH (09:30)
[2022-01-23] MEDS: METOPROLOL SUCCINATE XL 50 MG TABLET PO SCH (09:30)
[2022-01-23] MEDS: AMIODARONE 200 MG TABLET PO SCH ×2 (09:30→21:16)
[2022-01-23] MEDS: DUTASTERIDE 0.5 MG CAPSULE PO SCH (09:30)
[2022-01-23] MEDS: COLCHICINE 0.6 MG CAPSULE PO SCH (09:30)
[2022-01-23] MEDS: CYANOCOBALAMIN 500 MCG TABLET PO SCH ×2 (09:30→21:16)
[2022-01-23] MEDS: ISOSORBIDE MONONITRATE 30 MG TABLET PO SCH ×2 (09:30→21:16)
[2022-01-23] MEDS: PANTOPRAZOLE 40 MG TABLET PO SCH (09:30)
[2022-01-23] MEDS: POLYETHYLENE GLYCOL POWDER 17 GM PACK PO SCH (11:56)
[2022-01-23] MEDS: CLINDAMYCIN 300 MG CAPSULE PO SCH ×2 (14:15→21:16)
[2022-01-23] MEDS: FERROUS SULFATE 325 MG TABLET PO SCH (16:39)
[2022-01-23] MEDS: DOCUSATE SODIUM 100 MG CAPSULE PO SCH (21:16)
[2022-01-23] MEDS: ROSUVASTATIN 20 MG TABLET PO SCH (21:16)
[2022-01-23] MEDS: ALPRAZolam 0.5 MG TABLET PO PRN (21:17)
[2022-01-24] MEDS: CLINDAMYCIN 300 MG CAPSULE PO SCH (05:54)
[2022-01-24] MEDS: IPRATROPIUM 500 MCG/2.5 ML NEB RESP TX SCH ×2 (07:34→11:11)
[2022-01-24 07:46] VITALS: BP 153/71
[2022-01-24] MEDS: INSULIN REGULAR 100 UNIT/ML SUBCUT SCH ×2 (09:08→11:55)
[2022-01-24] MEDS: INSULIN GLARGINE 100 UNIT/ML SUBCUT SCH (09:18)
[2022-01-24] MEDS: POLYETHYLENE GLYCOL POWDER 17 GM PACK PO SCH (09:21)
[2022-01-24] MEDS: PANTOPRAZOLE 40 MG TABLET PO SCH (09:21)
[2022-01-24] MEDS: CYANOCOBALAMIN 500 MCG TABLET PO SCH (09:21)
[2022-01-24] MEDS: FERROUS SULFATE 325 MG TABLET PO SCH (09:21)
[2022-01-24] MEDS: ISOSORBIDE MONONITRATE 30 MG TABLET PO SCH (09:21)
[2022-01-24] MEDS: DOCUSATE SODIUM 100 MG CAPSULE PO SCH (09:21)
[2022-01-24] MEDS: SPIRONOLACTONE 25 MG TABLET PO SCH (09:22)
[2022-01-24] MEDS: METOPROLOL SUCCINATE XL 50 MG TABLET PO SCH (09:22)
[2022-01-24] MEDS: DUTASTERIDE 0.5 MG CAPSULE PO SCH (09:22)
[2022-01-24] MEDS: AMIODARONE 200 MG TABLET PO SCH (09:22)
[2022-01-24] MEDS: COLCHICINE 0.6 MG CAPSULE PO SCH (09:22)
[2022-01-24] MEDS: ASPIRIN EC 81 MG TABLET PO SCH (09:22)
== END 2022-01-24 12:45 | disposition home health service (06) | DRG 252 ==
LOC: N.ED 15:15 → N.5E 21:36
PROVIDERS: ADMIT Surgery; ATTEND Surgery